=== PATIENT | male | born 1930 | race Hispanic/Latino ===

== ENCOUNTER 2018-11-24 10:08 | Observation (INO) | payer MEDICARE ==
[~2018-11-24] VITALS: Ht 160 cm; Wt 60.2 kg
[~2018-11-24 10:08] MED LIST: FENT-77 TD; LISI10TA7 PO; NALO4SPR NS; SIMV20TA6 PO
[2018-11-24] MEDS ORDERED: SODIUM CHLORIDE 0.9% 1000ML 1,000 ML IV ONE (10:35)
[2018-11-24 10:45] LABS: EOSINOPHILS % (AUTO) 0.1 % (0.0-8.0); HEMATOCRIT 33.3 % (42-54); LYMPHOCYTES % (AUTO) 6.4 % (21.0-51.0); MEAN CORPUSCULAR HEMOGLOBIN 30.3 pg (27.0-33.0); MEAN CORPUSCULAR HGB CONC 32.9 g/dL (32.0-36.0); MONOCYTES % (AUTO) 3.9 % (3.0-13.0); NEUTROPHILS % (AUTO) 89.6 % (40.0-77.0); NUCLEATED RED BLOOD CELLS 0.1 % (0.0-0.19); PLATELET COUNT (AUTO) 265 K/uL (130-400); RED BLOOD CELL COUNT(AUTO) 3.62 MIL/uL (4.50-6.20); RED CELL DISTRIBUTION WIDTH 16.4 % (11.0-15.5); WHITE BLOOD COUNT (AUTO) 9.7 K/uL (4.8-10.8)
[2018-11-24 10:50] LABS: CREATININE 2.5 mg/dL (0.5-1.5); POTASSIUM 4.9 mmol/L (3.5-5.1)
[2018-11-24 10:54] LABS: ALBUMIN 2.4 g/dL (3.5-5.0); BILIRUBIN,TOTAL 0.3 mg/dL (0.2-1.0); TOTAL PROTEIN, SERUM 6.9 g/dL (6.0-8.3)
[2018-11-24 10:58] LABS: INR 1.08 (0.85-1.15); PARTIAL THROMBOPLASTIN TIME 28.5 SEC (26.3-35.5); PROTHROMBIN TIME 11.3 SEC (9.6-11.6)
[2018-11-24] MEDS: SODIUM CHLORIDE 0.9% 1000ML 1,000 ML IV SCH (12:00)
[2018-11-24] MEDS ORDERED: MORPHINE SULFATE 2 MG/ML 1ML SYG IVP PRN (12:00)
[2018-11-24] MEDS ORDERED: ONDANSETRON HCL 4 MG/2 ML VIAL IVP PRN (12:00)
[2018-11-24 14:10] VITALS: BP 113/69
[2018-11-24] MEDS ORDERED: LIDOCAINE HCL 1% 20 ML VIAL ONE (15:37)
--- NOTE | 2018-11-24 16:35 | NUR ---
U/S GD LT THORACENTESIS PROCEDURE PERFORMED BY DR Maryan OLIVA. PUNCTURE SITE LT POSTERIOR BACK AND PATIENT TOLERATED PROCEDURE WELL. TOTAL REMOVED 400ML OF BLOOD TINGED FLUID. END OF PROCEDURE AT 1620. CATHETER REMOVED AND DRESSING APPLIED. NO BLEEDING NOTED. POST CHEST X-RAY TAKEN AND PENDING RESULTS. REPORT GIVEN TO Karol KHAN LVN AND PATIENT TRANSPORTED TO [facility] [place] VIA W/C AT 1635. AAO X3 WITH NO C/O PAIN. SPECIMEN SENT TO LAB.
[2018-11-24 20:00] VITALS: BP 112/53
[2018-11-25] VITALS: BP 110/50
[2018-11-25 04:00] VITALS: BP 104/54
[2018-11-25] MEDS ORDERED: PNV1TABL71 PO (05:42)
[2018-11-25] MEDS ORDERED: MEGE40L PO (05:42)
[2018-11-25] MEDS ORDERED: PRED5TAB PO (05:42)
[2018-11-25] MEDS ORDERED: CALC1TAB2 PO (05:42)
[2018-11-25] MEDS ORDERED: ABIR250T2 PO (05:42)
[2018-11-25 07:00] VITALS: BP 107/58
[2018-11-25] MEDS: SODIUM CHLORIDE 0.9% 1000ML 1,000 ML IV SCH (12:00)
== END 2018-11-25 14:00 | disposition home or self-care (01) ==
LOC: EDH 10:08 → EDHIP 10:09 → INTOOBSV 10:09 → 3CH 15:28
PROVIDERS: ADMIT Internal Medicine Hematology & Oncology; ATTEND Internal Medicine Hematology & Oncology
DX: C78.00 Secondary malignant neoplasm of unspecified lung (principal); J91.0 Malignant pleural effusion; C61 Malignant neoplasm of prostate; C79.51 Secondary malignant neoplasm of bone; E78.00 Pure hypercholesterolemia, unspecified; I10 Essential (primary) hypertension; R09.02 Hypoxemia; R62.7 Adult failure to thrive; Z85.46 Personal history of malignant neoplasm of prostate; Z79.01 Long term (current) use of anticoagulants
CPT/HCPCS: 32555; 36415; 71045; 71250; 80053; 85025; 85610; 85730; 88108; 88305; 93005; 99284; G0378 ×28; J7030